=== PATIENT | male | born 1950 | race Caucasian/White ===

== ENCOUNTER → 2024-05-11 12:32 | Outpatient (REF) | payer MEDICARE, BC, SELFPAY | LOC: EMG 12:32 | PROVIDERS: ATTENDING PHYSICIAN Physician Assistant Medical | DX: M54.16 Radiculopathy, lumbar region (principal) | CPT/HCPCS: 95886; 95911 ==

== ENCOUNTER → 2024-05-15 12:10 | Outpatient (REF) | payer MEDICARE, BC, SELFPAY | LOC: EMG 12:10 | PROVIDERS: ATTENDING PHYSICIAN Physician Assistant Medical | DX: M54.12 Radiculopathy, cervical region (principal); M48.062 Spinal stenosis, lumbar region with neurogenic claudication | CPT/HCPCS: 95886; 95911 ==